=== PATIENT | male | born 1985 | race Caucasian/White ===

== ENCOUNTER 2017-05-01 15:30 | Emergency (ER) | payer MEDICAID ==
[~2017-05-01] VITALS: Ht 182.9 cm; Wt 81.6 kg
[2017-05-01 15:30] VITALS: BP_SYST 127
[2017-05-01] MEDS ORDERED: DIPH-TET-PERTUS Vaccine 0.5 ML VIAL (ADACEL) I.M. ONE (18:30)
[2017-05-01] MEDS ORDERED: IBUPROFEN 800 MG TABLET PO ONE (18:30)
[2017-05-01] MEDS ORDERED: BACITRACIN 1 GM OINT TP ONE (18:30)
[2017-05-01 18:45] VITALS: BP_SYST 124
== END 2017-05-01 18:45 | disposition home or self-care (01) ==
LOC: SED 15:30
DX: F07.81 Postconcussional syndrome (principal); S10.91XA Abrasion of unspecified part of neck, initial encounter; M54.12 Radiculopathy, cervical region; R03.0 Elevated blood-pressure reading, without diagnosis of hypertension; Y04.0XXA Assault by unarmed brawl or fight, initial encounter; Y93.89 Activity, other specified; Y92.89 Other specified places as the place of occurrence of the external cause; Y99.8 Other external cause status
CPT/HCPCS: 70450-TC; 72125-TC; 90715; 99284

== ENCOUNTER 2017-12-20 14:51 | Emergency (ER) | payer MEDICAID ==
[~2017-12-20] VITALS: Ht 182.9 cm; Wt 81.6 kg
[2017-12-20 15:08] VITALS: BP_SYST 130
[2017-12-20] MEDS ORDERED: BACITRACIN 1 GM OINT TP ONE (16:00)
[2017-12-20] MEDS ORDERED: IBUPROFEN 800 MG TABLET PO ONE (16:00)
[2017-12-20] MEDS ORDERED: CEPHALEXIN 500 MG CAPSULE PO ONE (16:00)
[2017-12-20 17:12] VITALS: BP_SYST 130
== END 2017-12-20 17:12 | disposition home or self-care (01) ==
LOC: SED 14:51
DX: T24.202A Burn of second degree of unspecified site of left lower limb, except ankle and foot, initial encounter (principal); R03.0 Elevated blood-pressure reading, without diagnosis of hypertension; X12.XXXA Contact with other hot fluids, initial encounter; Y93.H9 Activity, other involving exterior property and land maintenance, building and construction; Y92.89 Other specified places as the place of occurrence of the external cause; Y99.8 Other external cause status
CPT/HCPCS: 99284